=== PATIENT | male | born 1970 | race Caucasian/White ===

== ENCOUNTER 2020-02-03 15:38 | Outpatient (CLI) | payer OTHER ==
--- NOTE | 2020-02-03 15:58 | RAD ---
ABDOMEN 1 VIEW: HISTORY: Ureteral calculus. COMPARISON: 01/26/2020. FINDINGS: There again is noted an irregular calculus measuring approximately 0.8 x 1.0 cm from amputation. Thi s is stable from the prior study of 01/26/2020. Left ureteral stent remains in place. IMPRESSION: Stable-appearing irregular-shaped calculus in the region of the upper left ureter. Left ureteral dillon nt in place. POS: RRE
== END 2020-02-03 15:39 | disposition home or self-care (01) ==
LOC: BICRAD 15:38
PROVIDERS: ATTEND Urology
DX: N20.1 Calculus of ureter (principal); Z96.0 Presence of urogenital implants
CPT/HCPCS: 74018

== ENCOUNTER 2020-02-29 15:13 | Outpatient (CLI) | payer OTHER ==
--- NOTE | 2020-02-29 16:19 | RAD ---
KUB: Indication: History of renal stones. Comparison: 02-03-2020 FINDINGS: There has been interval removal of a left ureteral stent. No suspicious calcification is evident. The re are scattered phleboliths. Bowel gas pattern is unobstructed. No acute osseous abnormality is evid ent. IMPRESSION: Interval removal of left sided ureteral stent. No suspicious calcification is evident. POS: BH
== END 2020-02-29 15:14 | disposition home or self-care (01) ==
LOC: BICRAD 15:13
PROVIDERS: ATTEND Urology
DX: N20.0 Calculus of kidney (principal)
CPT/HCPCS: 74018

== ENCOUNTER 2021-02-24 14:27 | Outpatient (CLI) | payer BC | END 2021-02-24 14:28 | disposition home or self-care (01) | LOC: BICRAD 14:27 | PROVIDERS: ATTEND Urology | DX: N20.2 Calculus of kidney with calculus of ureter (principal) | CPT/HCPCS: 74018 ==

== ENCOUNTER 2021-03-30 14:29 | Outpatient (CLI) | payer BC | END 2021-03-30 14:30 | disposition home or self-care (01) | LOC: BICRAD 14:29 | PROVIDERS: ATTEND Family Medicine | DX: M54.50 Low back pain, unspecified (principal); M43.16 Spondylolisthesis, lumbar region; M51.37 Other intervertebral disc degeneration, lumbosacral region | CPT/HCPCS: 72100 ==